=== PATIENT | male | born 1960 | race Caucasian/White ===

== ENCOUNTER 2016-10-26 19:16 | Emergency (ER) | payer OTHER ==
[~2016-10-26] VITALS: Ht 175.2 cm; Wt 88.9 kg
[~2016-10-26 19:16] MED LIST: ALL DAY ALLERGY10 MG PO; AMBIEN10 MG PO; ASPIRIN81 M1 PO; B12,B-12,B 12500 MC1 PO; CHOLESTEROL MED; DICLOFENAC POTA50 MG PO; DOCUSATE SODIU100 MG PO; FLEXERIL10 MG PO; FLUOXETINE HCL40 MG PO; HYDROCODONE BIT1 T11 PO; LIPITOR20 MG PO; LIPITOR40 MG PO; MEDROL DOSEPAK4 MG PO; MOTRIN800 MG PO; MULTIVITAMIN1 CTB PO; NAPROSYN500 MG PO; NEXIUM40 MG PO; NORFLEX100 MG PO; PEPCID20 MG PO; PERCOCET 325 MG1 TA2 PO; PIROXICAN10 MG PO; ROBAXIN-750750 MG PO; SUMATRIPTAN SU100 M1 PO; ULTRAM50 MG PO; VALIUM10 MG PO; VICODIN 5/500 505 MG PO; VITAMIN D50000 I3 PO; ZANTAC 150150 MG PO; ZITHROMAX Z PA250 MG PO; Zofran4 MG PO
[2016-10-26 20:03] LABS: BASO % 0.2 % (0.0-1.0); HEMATOCRIT 40.1 % (42.0-52.0); HEMOGLOBIN 13.4 g/dl (14.0-18.0); LYMPH # 1.8 10*3/uL (1.3-4.4); LYMPH % 31.2 % (27.0-41.0); MEAN CELL VOLUME 94.1 fl (80.0-94.0); MEAN CORPUSCULAR HGB 31.5 pg (27.0-31.0); MEAN CORPUSCULAR HGB CONC 33.4 g/dl (33.0-37.0); MEAN PLATELET VOLUME 10.6 fl (9.6-12.3); MONO # 0.4 10*3/uL (0.1-1.0); MONO % 6.4 % (3.0-9.0); NEUT # 3.5 10*3/uL (2.3-7.9); PLATELET COUNT AUTOMATED 172 10*3/uL (130-400); RED BLOOD COUNT 4.26 10*6/uL (4.50-5.90); WHITE BLOOD COUNT 5.7 10*3/uL (4.8-10.8)
[2016-10-26 20:17] LABS: ALBUMIN 3.7 gm/dl (3.1-4.5); ALKALINE PHOSPHATASE 46 U/L (45-117); BILIRUBIN, TOTAL 0.4 mg/dl (0.2-1.0); BUN 7 mg/dl (7-24); CARBON DIOXIDE 30 mmol/L (21-32); CHLORIDE 111 mmol/L (98-107); EST GLOM FILT AFRICAN AMERICAN > 60 ml/min; GLUCOSE 114 mg/dL (65-99); POTASSIUM 3.7 mmol/L (3.5-5.1); SGOT/AST 42 IU/L (3-35); SGPT/ALT 19 U/L (12-78); SODIUM 149 mmol/L (136-145); TOTAL PROTEIN 6.4 gm/dL (6.4-8.2)
== END 2016-10-26 21:18 | disposition home or self-care (01) ==
LOC: ED 19:16
PROVIDERS: Nurse Practitioner Family
DX: G89.29 Other chronic pain (principal); M79.601 Pain in right arm; R51 Headache; Z88.6 Allergy status to analgesic agent; Z79.82 Long term (current) use of aspirin; Z79.899 Other long term (current) drug therapy

== ENCOUNTER → 2017-11-18 | Day surgery (SDC) | payer MEDICARE ==
[~2017-11-18] VITALS: Ht 175.2 cm; Wt 90.7 kg
--- NOTE | ~2017-11-18 | O ---
[place], [place] OPERATIVE NOTE NAME: JOJO NOVA UNIT #: [id number] ROOM: DOCTOR: ADALID TIWARI MD BIRTHDATE: [birth year] DOS: 11/18/2017 INDICATIONS: A 58-year-old patient was presented with dyspepsia, despite the fact that he is on Nexium, however, Nexium is helping, history of colon polyp. ALLERGIES: PENICILLIN. FAMILY HISTORY: Uncle with colonic carcinoma. PAST SURGICAL HISTORY: Knee, appendectomy, neck and back. PAST MEDICAL HISTORY: Depression, chronic pain, gastritis and neuropathy. SOCIAL HISTORY: Nonsmoker, stopped alcohol drinking 2 years ago. Today's procedure part of investigation is panendoscopy and colonoscopy. PREMEDICATION: Versed and propofol. SCOPE: Olympus forward-viewing gastroscope Q10 video. REPORT: After putting the patient in left lateral position and application of lubricant to the scope, the scope was introduced; thereafter, under direct visualization, advanced through the length of esophagus without difficulty. Gastric pouch was entered. Evidence of gastritis was seen. Duodenal bulb, second and third part within normal limits. Antral biopsy obtained. GI reflection of the scope reveals cardia to be benign. Air was suctioned out. The patient was extubated, tolerated procedure well. IMPRESSION: 1. Mild gastritis. 2. Status post chronic Nexium therapy. 3. Dyspepsia that he is experiencing is secondary to aspirin intake 181 mg tab twice a day. PLAN AND DISCUSSION: We are going to continue with same medications and I am going to advise the Gaviscon Extra Strength 1 tablet p.r.n. for dyspepsia, acid breakthrough. We will proceed with colonoscopy. GASTROENDOSCOPIC REPORT The patient with a history of colonic polyp. Today's procedure part of investigation is colonoscopy for reassessment of polyps as well as family history presence of colonic carcinoma in uncle. PROCEDURE: Today's procedure part of investigation is Colonoscopy. OPERATIVE TECHNIQUE: After putting the patient in left lateral position and [place], [place] OPERATIVE NOTE NAME: JOJO NOVA UNIT #: [id number] ROOM: DOCTOR: ADALID TIWARI MD BIRTHDATE: [birth year] application of lubricant to the scope, the scope was introduced. Thereafter, under direct visualization, advanced through the length of colon without difficulty. Base of the cecum explored, appendiceal was identified. Ileocecal valve was defined. Scope was gradually withdrawn from ascending, transverse, descending colon. The patient extubated to the level of rectal pouch. There are multiple hyperplastic polyps in the rectal pouch 1 which was more adenomatous appearance to it was with piecemeal polypectomy removed. The patient extubated, tolerated procedure well. IMPRESSION: Multiple colonic polyp in rectosigmoid and rectal anatomy, status post piecemeal polypectomy of polyp. The patient has been advised to stop aspirin; however, he has been continuing taking his aspirin. PLAN: He has continued to take his aspirin until yesterday; therefore, we could not do more sampling of the polyps. Thank you very much indeed for your kind referral. ADALID TIWARI MD CM:OPRECORD:OPERATIVE NOTE [id number] ADALID TIWARI MD 11/19/17 1149 interface
[2017-11-18 10:11] VITALS: BP 134/96
[2017-11-18 10:38] VITALS: BP 133/90
[2017-11-18 10:53] VITALS: BP 140/77
[2017-11-18 11:03] VITALS: BP 124/70
== END | disposition home or self-care (01) ==
LOC: SDC 11-12 09:30
DX: Z12.11 Encounter for screening for malignant neoplasm of colon (principal); K29.50 Unspecified chronic gastritis without bleeding; K62.1 Rectal polyp; Z86.010 Personal history of colon polyps; Z80.0 Family history of malignant neoplasm of digestive organs; Z88.0 Allergy status to penicillin; Z90.49 Acquired absence of other specified parts of digestive tract; F32.9 Major depressive disorder, single episode, unspecified; G89.29 Other chronic pain; Z79.82 Long term (current) use of aspirin; K21.9 Gastro-esophageal reflux disease without esophagitis; J45.909 Unspecified asthma, uncomplicated

== ENCOUNTER → 2019-05-04 | Day surgery (SDC) | payer OTHER ==
[2019-05-02 11:32] VITALS: BP 160/92
[~2019-05-04] VITALS: Ht 175.2 cm; Wt 90.7 kg
[~2019-05-04] MED LIST changes: +BENEFIBER1 EACH PO; +IMITREX100 MG PO; +MIRALAX17 GM PO; +NEURONTIN600 MG PO; +PROZAC40 M1 PO; +SILDENAFIL20 M1 PO; +VIAGRA100 MG PO; +VITAMIN D400 I1 PO; +ZYRTEC10 M3 PO
--- NOTE | ~2019-05-04 | O ---
[place], [place] OPERATIVE NOTE NAME: [id number] UNIT #: [id number] ROOM: DOCTOR: ADALID TIWARI MD BIRTHDATE: [birth year] DOS: GASTROENDOSCOPIC REPORT HISTORY OF ILLNESS: The patient has presented with chief complaint of epigastric distress, dyspepsia, and history of colonic polyp. FAMILY HISTORY: Uncle with colonic carcinoma. PAST MEDICAL HISTORY: Hyperlipidemia, anxiety. PAST SURGICAL HISTORY: None. SOCIAL HISTORY: Nonsmoker, nonalcohol consumer. PROCEDURE: Today's procedure part of investigation is panendoscopy and colonoscopy. PREMEDICATION: Propofol. SCOPE: Olympus forward-viewing gastroscope Q10 video. REPORT: After putting the patient in left lateral position and application of lubricant to the scope, the scope was introduced. Thereafter, under direct visualization, advanced through the length of esophagus without difficulty. Gastric pouch was entered. Gastritis, gastric erosions were seen. Photographic series was obtained. Biopsies obtained. After the inspection of the duodenum, the patient was extubated and tolerated the procedure well. IMPRESSION: Gastritis, gastric erosions. PLAN AND DISCUSSION: The patient is already on Nexium 40 more mg day. We are going to add Extra Strength Gaviscon 1 at bedtime. The patient on aspirin product and on multiple medications otherwise. PLAN AND DISCUSSION: I am going to proceed with colonoscopy as of now. [place], [place] OPERATIVE NOTE NAME: JOJO NOVA UNIT #: [id number] ROOM: DOCTOR: ADALID TIWARI MD BIRTHDATE: [birth year] ADALID TIWARI MD CM:OPRECORD:OPERATIVE NOTE 1204 1344 ADALID TIWARI MD 05/04/19 1343 interface
--- NOTE | ~2019-05-04 | O ---
[place], [place] OPERATIVE NOTE NAME: [id number] UNIT #: [id number] ROOM: DOCTOR: KARIE MAGANA,ADALID BIRTHDATE: [birth year] DOS: The patient has presented with colonic polyp history. Family history of colonic cancer unremarkable. PROCEDURE: Today's procedure part of investigation is colonoscopy plus piecemeal polypectomy. PREMEDICATION: Propofol. SCOPE: Olympus forward-viewing colonoscope 10L video. DESCRIPTION OF PROCEDURE: After putting the patient in left lateral position and application of lubricant through the scope. The scope was introduced, thereafter under direct visualization, advanced through the length of colon without difficulty. Base of the cecum explored, appendiceal orifice identified, ileocecal valve was defined. No acute pathology except a sessile polypoid lesion in sigmoid colon with piecemeal polypectomy removed. Air was suctioned out. The patient was extubated, tolerated the procedure well. IMPRESSION: Sessile colonic polyp, status post piecemeal polypectomy x 2 from sigmoid colon. PLAN: High fiber diet. ACTIVITY: Ad melly. FOLLOWUP: As outpatient. ADALID TIWARI MD CM:OPRECORD:OPERATIVE NOTE 1204 135 ADALID TIWARI MD 05/04/19 1352 interface
[2019-05-04 11:58] VITALS: BP 145/90
[2019-05-04 12:13] VITALS: BP 173/90
[2019-05-04 12:27] VITALS: BP 168/88
== END | disposition home or self-care (01) ==
LOC: SDC 05-02 11:00
DX: Z09 Encounter for follow-up examination after completed treatment for conditions other than malignant neoplasm (principal); K29.50 Unspecified chronic gastritis without bleeding; K63.5 Polyp of colon; K21.9 Gastro-esophageal reflux disease without esophagitis; F32.9 Major depressive disorder, single episode, unspecified; F41.9 Anxiety disorder, unspecified; J45.909 Unspecified asthma, uncomplicated; E78.5 Hyperlipidemia, unspecified; Z98.890 Other specified postprocedural states; Z79.899 Other long term (current) drug therapy; Z80.0 Family history of malignant neoplasm of digestive organs

== ENCOUNTER 2019-07-02 13:24 | Emergency (ER) | payer OTHER ==
[~2019-07-02] VITALS: Ht 175.2 cm; Wt 90.7 kg
[2019-07-02] MEDS ORDERED: ZOFRAN4 MG PO (16:40)
== END 2019-07-02 16:42 | disposition home or self-care (01) ==
LOC: ED 13:24
DX: G43.909 Migraine, unspecified, not intractable, without status migrainosus (principal); K21.9 Gastro-esophageal reflux disease without esophagitis; J45.909 Unspecified asthma, uncomplicated; Z88.0 Allergy status to penicillin; Z79.899 Other long term (current) drug therapy; Z79.82 Long term (current) use of aspirin

== ENCOUNTER → 2020-10-01 | Outpatient (CLI) | payer OTHER ==
[~2020-10-01] MED LIST changes: +ZOFRAN4 MG PO
== END | disposition home or self-care (01) ==
LOC: COVID19 10:28
PROVIDERS: ATTEND Internal Medicine Gastroenterology
DX: Z01.812 Encounter for preprocedural laboratory examination (principal); Z20.822 Contact with and (suspected) exposure to COVID-19

== ENCOUNTER → 2021-01-18 | Outpatient (CLI) | payer OTHER ==
[2021-01-18 12:46] LABS: BUN 15 mg/dl (7-24); CHLORIDE 108 mmol/L (98-107); CHOLESTEROL 193 mg/dL (<200); CREATININE 0.94 mg/dL (0.70-1.30); POTASSIUM 4.4 mmol/L (3.5-5.1); SODIUM 138 mmol/L (136-145); TRIGLYCERIDES 170 mg/dl (<150)
[2021-01-18 12:48] LABS: LDL CHOLESTEROL 106 mg/dL (9-159)
== END | disposition home or self-care (01) ==
LOC: LAB 11:52
PROVIDERS: ATTEND Family Medicine
DX: M51.06 Intervertebral disc disorders with myelopathy, lumbar region (principal); E78.2 Mixed hyperlipidemia

== ENCOUNTER → 2021-02-18 | Outpatient (CLI) | payer OTHER | END | disposition home or self-care (01) | LOC: LAB 11:03 | PROVIDERS: ATTEND Nurse Practitioner Family | DX: Z01.812 Encounter for preprocedural laboratory examination (principal); Z20.822 Contact with and (suspected) exposure to COVID-19 ==

== ENCOUNTER 2021-05-28 17:00 | Emergency (ER) | payer OTHER ==
[2021-05-28 17:53] LABS: BASO % 0.6 % (0.0-1.0); EOS # 0.1 10*3/uL (0.0-0.4); EOS % 2.6 % (1.0-4.0); HEMATOCRIT 40.4 % (42.0-52.0); LYMPH # 1.2 10*3/uL (1.3-4.4); LYMPH % 37.7 % (27.0-41.0); MEAN CELL VOLUME 96.2 fl (80.0-94.0); MEAN CORPUSCULAR HGB 31.4 pg (27.0-31.0); MEAN CORPUSCULAR HGB CONC 32.7 g/dl (33.0-37.0); MEAN PLATELET VOLUME 11.3 fl (9.6-12.3); MONO # 0.3 10*3/uL (0.1-1.0); MONO % 9.1 % (3.0-9.0); NEUT # 1.5 10*3/uL (2.3-7.9); PLATELET COUNT AUTOMATED 137 10*3/uL (130-400); WHITE BLOOD COUNT 3.1 10*3/uL (4.8-10.8)
[2021-05-28 18:09] LABS: ALBUMIN 3.2 gm/dl (3.1-4.5); ALKALINE PHOSPHATASE 54 U/L (45-117); BUN 14 mg/dl (7-24); CHLORIDE 107 mmol/L (98-107); CREATININE 0.72 mg/dL (0.70-1.30); LIPASE 13 U/L (73-393); POTASSIUM 3.9 mmol/L (3.5-5.1); SGOT/AST 21 IU/L (3-35); SGPT/ALT 19 U/L (12-78); SODIUM 141 mmol/L (136-145)
[2021-05-28 18:23] LABS: TROPONIN I < 0.015 ng/ml (<0.045)
[2021-05-28 18:56] LABS: BILIRUBIN Negative (Negative); BLOOD Negative (Negative); CLARITY Clear (Clear); COLOR Yellow (Yellow); GLUCOSE Negative (Negative); KETONE Trace (Negative); LEUKO ESTERASE Negative (Negative); NITRITE Negative (Negative); PH 5.5 (4.5-8.0); SPECIFIC GRAVITY 1.025 (1.001-1.030)
[2021-05-28 19:06] LABS: URINE AMPHETAMINES < 1000 (1000ng/ml); URINE BARBITURATES < 200 (200ng/ml); URINE BENZODIAZEPINES > 200 (200ng/ml); URINE CANNABINOIDS (THC) < 50 (50ng/ml); URINE COCAINE < 300 (300ng/ml); URINE METHADONE < 300 (300ng/ml); URINE OPIATES > 300 (300ng/ml)
[2021-05-28 19:10] LABS: URINE PHENCYCLIDINE < 25 (25ng/ml)
[2021-05-28 19:18] LABS: ACETAMINOPHEN (TYLENOL) 15.1 ug/ml (10-30)
[2021-05-28 19:18] LABS: BACTERIA TRACE; EPITHELIAL CELLS 0-2; RBC 0-2 rbc/hpf (0-2); WBC 0-2 wbc/hpf (0-5)
[2021-05-28 19:19] LABS: MUCOUS TRACE
[2021-05-28 19:22] LABS: ETHYL ALCOHOL < 3.0 mg/dl (<3)
[2021-05-29 06:28] LABS: TOTAL PROTEIN 6.2 gm/dL (6.4-8.2)
== END 2021-05-28 21:32 | disposition home or self-care (01) ==
LOC: ED 17:00
PROVIDERS: Emergency Medicine; Physician Assistant
DX: R40.0 Somnolence (principal); T43.595A Adverse effect of other antipsychotics and neuroleptics, initial encounter; Z88.0 Allergy status to penicillin; Z79.899 Other long term (current) drug therapy; Z79.82 Long term (current) use of aspirin; Z90.49 Acquired absence of other specified parts of digestive tract; Z98.890 Other specified postprocedural states; Y92.89 Other specified places as the place of occurrence of the external cause

== ENCOUNTER → 2021-06-05 | Outpatient (CLI) | payer OTHER | END | disposition home or self-care (01) | LOC: COVID19 15:20 | PROVIDERS: ATTEND Internal Medicine | DX: U07.1 COVID-19 (principal) ==

== ENCOUNTER 2022-05-21 03:49 | Emergency (ER) | payer OTHER ==
[~2022-05-21] VITALS: Ht 175.2 cm; Wt 93.9 kg
[2022-05-21 04:37] LABS: BASO % 0.3 % (0.0-1.0); EOS % 0.6 % (1.0-4.0); HEMATOCRIT 47.8 % (42.0-52.0); LYMPH # 2.5 10*3/uL (1.3-4.4); LYMPH % 36.4 % (27.0-41.0); MEAN CELL VOLUME 98.2 fl (80.0-94.0); MEAN CORPUSCULAR HGB 32.4 pg (27.0-31.0); MEAN CORPUSCULAR HGB CONC 33.1 g/dl (33.0-37.0); MEAN PLATELET VOLUME 10.4 fl (9.6-12.3); MONO # 0.4 10*3/uL (0.1-1.0); MONO % 6.4 % (3.0-9.0); NEUT # 3.9 10*3/uL (2.3-7.9); NEUT % 55.7 % (47.0-73.0); PLATELET COUNT AUTOMATED 210 10*3/uL (130-400); RED BLOOD COUNT 4.87 10*6/uL (4.50-5.90); RED CELL DISTRI WIDTH 12.8 % (0-14.5); WHITE BLOOD COUNT 6.9 10*3/uL (4.8-10.8)
[2022-05-21 05:03] LABS: ALKALINE PHOSPHATASE 52 U/L (45-117); BUN 14 mg/dl (7-24); CHLORIDE 107 mmol/L (98-107); CREATININE 0.92 mg/dL (0.70-1.30); LIPASE 57 U/L (73-393); POTASSIUM 4.3 mmol/L (3.5-5.1); SGOT/AST 11 IU/L (3-35); SGPT/ALT 18 U/L (12-78); SODIUM 142 mmol/L (136-145); TOTAL PROTEIN 6.6 gm/dL (6.4-8.2)
[2022-05-21] MEDS ORDERED: ZITHROMAX250 MG PO (06:47)
== END 2022-05-21 06:54 | disposition home or self-care (01) ==
LOC: ED 03:49
PROVIDERS: Emergency Medicine
DX: R07.89 Other chest pain (principal); R05.9 Cough, unspecified; R06.02 Shortness of breath; G43.909 Migraine, unspecified, not intractable, without status migrainosus; Z88.0 Allergy status to penicillin; Z79.899 Other long term (current) drug therapy; Z79.82 Long term (current) use of aspirin; Z90.49 Acquired absence of other specified parts of digestive tract; Z98.890 Other specified postprocedural states

== ENCOUNTER → 2022-06-16 | Outpatient (CLI) | payer OTHER ==
[~2022-06-16] MED LIST changes: +ZITHROMAX250 MG PO
== END | disposition home or self-care (01) ==
LOC: COVID19 11:37
PROVIDERS: ATTEND Internal Medicine
DX: Z20.822 Contact with and (suspected) exposure to COVID-19 (principal)

== ENCOUNTER 2022-07-05 11:12 | Emergency (ER) | payer OTHER ==
[~2022-07-05] VITALS: Ht 175.2 cm; Wt 93.4 kg
[2022-07-05 12:27] LABS: BASO % 0.2 % (0.0-1.0); EOS % 0.9 % (1.0-4.0); HEMATOCRIT 42.9 % (42.0-52.0); LYMPH # 1.1 10*3/uL (1.3-4.4); LYMPH % 24.1 % (27.0-41.0); MEAN CELL VOLUME 92.1 fl (80.0-94.0); MEAN CORPUSCULAR HGB 32.2 pg (27.0-31.0); MEAN PLATELET VOLUME 10.6 fl (9.6-12.3); MONO # 0.3 10*3/uL (0.1-1.0); MONO % 5.9 % (3.0-9.0); NEUT # 3.2 10*3/uL (2.3-7.9); NEUT % 68.9 % (47.0-73.0); PLATELET COUNT AUTOMATED 170 10*3/uL (130-400); RED BLOOD COUNT 4.66 10*6/uL (4.50-5.90); RED CELL DISTRI WIDTH 12.2 % (0-14.5); WHITE BLOOD COUNT 4.6 10*3/uL (4.8-10.8)
[2022-07-05 12:42] LABS: ALKALINE PHOSPHATASE 51 U/L (46-116); CHLORIDE 109 mmol/L (98-107); CREATININE 0.65 mg/dL (0.70-1.30); POTASSIUM 3.8 mmol/L (3.4-5.1); SGPT/ALT 8 U/L (10-49); SODIUM 143 mmol/L (136-145); TOTAL PROTEIN 6.3 gm/dL (6.0-8.0)
[2022-07-05 12:59] LABS: BUN < 5 mg/dl (9-23)
[2022-07-05] MEDS ORDERED: DOXYCYCLINE HY100 M3 PO (13:36)
== END 2022-07-05 13:45 | disposition home or self-care (01) ==
LOC: ED 11:12
PROVIDERS: Family Medicine
DX: J18.9 Pneumonia, unspecified organism (principal); Z20.822 Contact with and (suspected) exposure to COVID-19; Z88.0 Allergy status to penicillin; Z79.899 Other long term (current) drug therapy; Z79.82 Long term (current) use of aspirin; Z90.49 Acquired absence of other specified parts of digestive tract; Z98.890 Other specified postprocedural states

== ENCOUNTER 2022-08-03 00:27 | Emergency (ER) | payer OTHER ==
[~2022-08-03 00:27] MED LIST changes: +DOXYCYCLINE HY100 M3 PO
[2022-08-03 00:58] LABS: BASO % 0.5 % (0.0-1.0); EOS # 0.1 10*3/uL (0.0-0.4); EOS % 1.3 % (1.0-4.0); HEMATOCRIT 48.1 % (42.0-52.0); LYMPH # 1.7 10*3/uL (1.3-4.4); LYMPH % 28.9 % (27.0-41.0); MEAN CELL VOLUME 94.3 fl (80.0-94.0); MEAN CORPUSCULAR HGB CONC 33.9 g/dl (33.0-37.0); MEAN PLATELET VOLUME 10.7 fl (9.6-12.3); MONO # 0.4 10*3/uL (0.1-1.0); MONO % 6.7 % (3.0-9.0); NEUT # 3.7 10*3/uL (2.3-7.9); NEUT % 62.4 % (47.0-73.0); PLATELET COUNT AUTOMATED 233 10*3/uL (130-400); RED CELL DISTRI WIDTH 11.9 % (0-14.5)
[2022-08-03 01:09] LABS: ACT PARTIAL THROMBO TIME 25.1 SECONDS (20.0-32.1)
[2022-08-03 01:13] LABS: ALKALINE PHOSPHATASE 55 U/L (46-116); BUN 12 mg/dl (9-23); CHLORIDE 107 mmol/L (98-107); POTASSIUM 4.6 mmol/L (3.4-5.1); SGPT/ALT 8 U/L (10-49)
[2022-08-03] MEDS ORDERED: PREDNISONE20 M1 PO (04:15)
== END 2022-08-03 05:46 | disposition home or self-care (01) ==
LOC: ED 00:27
PROVIDERS: Internal Medicine
DX: J45.909 Unspecified asthma, uncomplicated (principal); H61.23 Impacted cerumen, bilateral; R51.9 Headache, unspecified; Z88.0 Allergy status to penicillin; Z90.49 Acquired absence of other specified parts of digestive tract; Z98.890 Other specified postprocedural states; F10.20 Alcohol dependence, uncomplicated

== ENCOUNTER 2023-01-20 18:45 | Emergency (ER) | payer OTHER ==
[~2023-01-20 18:45] MED LIST changes: +PREDNISONE20 M1 PO
[2023-01-20 19:41] LABS: BILIRUBIN Negative (Negative); BLOOD Negative (Negative); CLARITY Clear (Clear); COLOR Yellow (Yellow); GLUCOSE Negative (Negative); KETONE Negative (Negative); LEUKO ESTERASE Negative (Negative); NITRITE Negative (Negative); SPECIFIC GRAVITY <= 1.005 (1.001-1.030); UROBILINOGEN 0.2 E.U./dl (0.0-1.0)
[2023-01-20 19:48] LABS: URINE AMPHETAMINES Negative (1000ng/ml); URINE BARBITURATES Negative (200ng/ml); URINE BENZODIAZEPINES Positive (200ng/ml); URINE CANNABINOIDS (THC) Negative (50ng/ml); URINE COCAINE Negative (300ng/ml); URINE METHADONE Negative (300ng/ml); URINE OPIATES Negative (300ng/ml); URINE PHENCYCLIDINE Negative (25ng/ml)
[2023-01-20 19:50] LABS: RBC 0-2 rbc/hpf (0-2); WBC 0-2 wbc/hpf (0-5)
[2023-01-20 19:56] LABS: BASO % 0.4 % (0.0-1.0); EOS % 0.6 % (1.0-4.0); HEMATOCRIT 42.5 % (42.0-52.0); LYMPH # 1.9 10*3/uL (1.3-4.4); LYMPH % 37.5 % (27.0-41.0); MEAN CELL VOLUME 93.4 fl (80.0-94.0); MEAN CORPUSCULAR HGB 32.1 pg (27.0-31.0); MEAN CORPUSCULAR HGB CONC 34.4 g/dl (33.0-37.0); MEAN PLATELET VOLUME 10.3 fl (9.6-12.3); MONO # 0.3 10*3/uL (0.1-1.0); MONO % 6.5 % (3.0-9.0); NEUT # 2.8 10*3/uL (2.3-7.9); NEUT % 54.8 % (47.0-73.0); PLATELET COUNT AUTOMATED 178 10*3/uL (130-400); RED BLOOD COUNT 4.55 10*6/uL (4.50-5.90); WHITE BLOOD COUNT 5.1 10*3/uL (4.8-10.8)
[2023-01-20 20:18] LABS: ALKALINE PHOSPHATASE 48 U/L (46-116); BUN 5 mg/dl (9-23); CHLORIDE 109 mmol/L (98-107); ETHYL ALCOHOL 290.2 mg/dl (<3); LIPASE 26 U/L (12-53); POTASSIUM 3.5 mmol/L (3.4-5.1); SGPT/ALT 18 U/L (10-49); TOTAL PROTEIN 6.3 gm/dL (6.0-8.0)
== END 2023-01-20 21:48 | disposition home or self-care (01) ==
LOC: ED 18:45
PROVIDERS: Internal Medicine
DX: F10.129 Alcohol abuse with intoxication, unspecified (principal); Y90.0 Blood alcohol level of less than 20 mg/100 ml; K21.9 Gastro-esophageal reflux disease without esophagitis; F32.A Depression, unspecified; J45.909 Unspecified asthma, uncomplicated; Z88.0 Allergy status to penicillin; Z90.49 Acquired absence of other specified parts of digestive tract; Z98.890 Other specified postprocedural states; Z79.899 Other long term (current) drug therapy; Y92.89 Other specified places as the place of occurrence of the external cause

== ENCOUNTER → 2024-02-11 | Outpatient (CLI) | payer OTHER ==
[~2024-02-11] MED LIST changes: +GADOTERATE MEGLUMINE 10 MMOL/20 ML VIAL IV ONE
== END | disposition home or self-care (01) ==
LOC: MRI 10:57
PROVIDERS: ATTEND Psychiatry & Neurology Neurology
DX: M47.817 Spondylosis without myelopathy or radiculopathy, lumbosacral region (principal); M51.27 Other intervertebral disc displacement, lumbosacral region; M48.07 Spinal stenosis, lumbosacral region; M51.36 Other intervertebral disc degeneration, lumbar region; Z98.1 Arthrodesis status

== ENCOUNTER → 2024-04-06 | Outpatient (CLI) | payer OTHER ==
[~2024-04-06] MED LIST changes: -GADOTERATE MEGLUMINE 10 MMOL/20 ML VIAL IV ONE
== END | disposition home or self-care (01) ==
LOC: MRI 12:42
PROVIDERS: ATTEND Psychiatry & Neurology Neurology
DX: M47.812 Spondylosis without myelopathy or radiculopathy, cervical region (principal); M25.78 Osteophyte, vertebrae; M43.22 Fusion of spine, cervical region; M48.02 Spinal stenosis, cervical region

== ENCOUNTER → 2024-10-07 | Outpatient (CLI) | payer OTHER ==
[~2024-10-07] MED LIST changes: +IOHEXOL 300 MG/ML 100 ML VIAL IV ONE
== END | disposition home or self-care (01) ==
LOC: CT 14:45
PROVIDERS: ATTEND Family Medicine
DX: K52.9 Noninfective gastroenteritis and colitis, unspecified (principal); K57.30 Diverticulosis of large intestine without perforation or abscess without bleeding; N28.1 Cyst of kidney, acquired; K76.89 Other specified diseases of liver; M16.0 Bilateral primary osteoarthritis of hip; M47.816 Spondylosis without myelopathy or radiculopathy, lumbar region; B18.2 Chronic viral hepatitis C; R14.0 Abdominal distension (gaseous)

== ENCOUNTER → 2025-02-16 | Outpatient (CLI) | payer OTHER ==
[~2025-02-16] MED LIST changes: -IOHEXOL 300 MG/ML 100 ML VIAL IV ONE
[2025-02-16 13:21] LABS: MEAN CELL VOLUME 93.5 fl (80.0-94.0); MEAN CORPUSCULAR HGB 31.3 pg (27.0-31.0); MEAN PLATELET VOLUME 10.8 fl (9.6-12.3); NUCLEATED RED BLOOD CELL 0.0 % (0.0-0.0); NUCLEATED RED BLOOD CELL 0.0 10*3/uL (0.0-0.0); PLATELET COUNT AUTOMATED 142.0 10*3/uL (130-400); RED CELL DISTRI WIDTH 12.0 % (0-14.5)
[2025-02-16 14:36] LABS: BUN 13 mg/dl (9-23); CPK 145 U/L (34-171); FREE T4 1.17 ng/dl (0.89-1.76); LDL CHOLESTEROL 150 mg/dL (9-159); SGPT/ALT 10 U/L (5-49)
[2025-02-16 15:06] LABS: VITAMIN D, 25-HYDROXY 53.6 ng/mL (30-100)
[2025-02-17 21:06] LABS: HEPATITIS C QUANTITATION HCV Not Detected IU/mL (.)
== END | disposition home or self-care (01) ==
LOC: LAB 12:31
PROVIDERS: ATTEND Family Medicine
DX: R10.9 Unspecified abdominal pain (principal); E78.00 Pure hypercholesterolemia, unspecified; E55.9 Vitamin D deficiency, unspecified; K21.9 Gastro-esophageal reflux disease without esophagitis; R53.83 Other fatigue

== ENCOUNTER → 2025-06-06 | Outpatient (CLI) | payer OTHER, MEDICAID ==
[2025-06-06 10:25] LABS: MEAN CELL VOLUME 93.0 fl (80.0-94.0); MEAN CORPUSCULAR HGB 31.8 pg (27.0-31.0); MEAN PLATELET VOLUME 10.2 fl (9.6-12.3); NUCLEATED RED BLOOD CELL 0.0 % (0.0-0.0); NUCLEATED RED BLOOD CELL 0.0 10*3/uL (0.0-0.0); PLATELET COUNT AUTOMATED 120.0 10*3/uL (130-400); RED CELL DISTRI WIDTH 12.1 % (0-14.5)
[2025-06-06 10:47] LABS: BUN 13 mg/dl (9-23); CPK 186 U/L (34-171); LDL CHOLESTEROL 133 mg/dL (9-159); SGPT/ALT 10 U/L (5-49)
== END | disposition home or self-care (01) ==
LOC: LAB 10:08
PROVIDERS: ATTEND Family Medicine
DX: E78.00 Pure hypercholesterolemia, unspecified (principal); E74.00 Glycogen storage disease, unspecified; F41.1 Generalized anxiety disorder; E55.9 Vitamin D deficiency, unspecified

== ENCOUNTER → 2025-06-27 | Outpatient (CLI) | payer OTHER, MEDICAID | END | disposition home or self-care (01) | LOC: LAB 10:34 | PROVIDERS: ATTEND Family Medicine | DX: Z12.5 Encounter for screening for malignant neoplasm of prostate (principal) ==